=== PATIENT | male | born 1960 | race Hispanic/Latino ===

== ENCOUNTER 2023-10-24 08:11 | Emergency (ER) | payer SELFPAY ==
[2023-10-24] MEDS ORDERED: Ketorolac Tromethamine 30 MG (1 mL) VIAL ONE (08:34)
[2023-10-24] MEDS ORDERED: Aspirin Chewable 81 MG TAB ONE (08:35)
[2023-10-24] MEDS ORDERED: Acetaminophen 500 MG TAB ONE (08:35)
[2023-10-24 09:09] LABS: Hematocrit 40.3 % (38.8-50.0); Hemoglobin 14.1 g/dL (13.5-17.5); Mean Corpuscular Hemoglobin 31.5 pg (27.0-33.0); Red Blood Cell (RBC) Count 4.48 10x6/uL (4.32-5.72)
[2023-10-24 09:10] LABS: #Basophils 0.03 10x3/uL (0.0-0.2); #Eosinphils 0.25 10x3/uL (0.0-0.5); #Monocytes 0.46 10x3/uL (0.0-1.1); #Neutrophils 2.83 10x3/uL (1.5-8.4); Mean Platelet Volume 8.5 fL (7.4-10.4); Platelet Count 236 10x3/uL (130-400)
[2023-10-24 09:11] LABS: %Lymphocytes 39.5 % (18.0-47.0); %Monocytes 7.7 % (0.0-10.0); %Neutrophils 47.6 % (40.0-75.0)
[2023-10-24 09:12] LABS: %Basophils 0.5 % (0.0-2.0); %Eosinophils 4.2 % (0.0-6.0)
[2023-10-24 09:26] LABS: ALT (SGPT) 23 U/L (8-55); AST (SGOT) 18 U/L (5-34); Albumin 3.5 g/dL (3.4-4.8); Alkaline Phosphatase 50 U/L (40-110); Anion Gap 13 mmol/L (10-20); BUN (Urea Nitrogen) 19 mg/dL (8.4-25.7); Bilirubin, Total 0.5 mg/dL (0.2-1.2); Calc. Creatinine Clearance 0 mL/min (70-130); Calcium 8.5 mg/dL (7.8-10.44); Carbon Dioxide 22 mmol/L (23-31); Chloride 105 mmol/L (98-107); Estimated GFR 92; Globulin 3.2 g/dL (2.4-3.5); Glucose 151 mg/dL (80-115); Lipase 68 U/L (8-78); Potassium 3.9 mmol/L (3.5-5.1); Protein, Total 6.7 g/dL (5.8-8.1); Sodium 136 mmol/L (136-145); Troponin I Less than 0.010 ng/mL (< 0.028)
[2023-10-24 11:05] LABS: Troponin I Less than 0.010 ng/mL (< 0.028)
== END 2023-10-24 11:32 | disposition home or self-care (01) ==
LOC: CSHERS 08:11
DX: M25.512 Pain in left shoulder (principal); E11.9 Type 2 diabetes mellitus without complications; I10 Essential (primary) hypertension; Z79.84 Long term (current) use of oral hypoglycemic drugs
CPT/HCPCS: 36415; 71046; 80053; 83690; 83880; 84484; 85025; 93005; 96374; J1885